=== PATIENT | female | born 1955 | race Caucasian/White ===

== ENCOUNTER 2016-11-15 08:25 | Day surgery (SDC) | payer OTHER ==
[2016-11-10 16:10] VITALS: BMI 32.5
[~2016-11-15 08:25] MED LIST: ACETAMINOPHEN 325 MG TABLET (FP) PO PRN; LIDOCAINE HCL 0.5% EPINEPHRINE 1:200,000 50 ML VIAL IJ ONE; TETRACAINE 0.5% OPHTH SOLN 2 ML BOTTLE TP ONE; TRIAMCINOLONE ACET 40MG/1ML VIAL IM ONE
[2016-11-15] MEDS ORDERED: CIPROFLOXACIN 0.3% EYE DROPS 5 ML BOTTLE ONE (08:38)
[2016-11-15] MEDS: CIPROFLOXACIN HCL 0.3% OPHTH 2.5ML BOTTLE OP SCH ×2 (09:00→09:10)
[2016-11-15] MEDS ORDERED: TRIAMCINOLONE ACET 40MG/1ML VIAL ONE (09:24)
[2016-11-15] MEDS ORDERED: LIDOCAINE HCL 2% JELLY (5 ML/TUBE) ONE (09:26)
[2016-11-15] MEDS ORDERED: LIDOCAINE HCL 2% JELLY (5 ML/TUBE) TP ONE (09:30)
[2016-11-15] MEDS ORDERED: LIDOCAINE HCL 0.5% EPINEPHRINE 1:200,000 50 ML VIAL IJ ONE ×2 (09:31→09:57)
[2016-11-15] MEDS ORDERED: MIDAZOLAM HCL 2 MG/2 ML SINGLE DOSE VIAL ONE (09:41)
[2016-11-15] MEDS ORDERED: TRIAMCINOLONE ACET 40MG/1ML VIAL IM ONE (10:17)
--- NOTE | 2016-11-15 11:26 | OP ---
DATE OF OPERATION: DATE OF DICTATION: 11/15/2016 PREOPERATIVE DIAGNOSIS: Pterygium, left eye. POSTOPERATIVE DIAGNOSIS: Pterygium, left eye. PROCEDURE: Excision of left pterygium with conjunctival autograft, left eye. ANESTHESIA: Topical/MAC. COMPLICATIONS: None. PROCEDURE: The patient was brought to the operating room and correctly identified along with the operative site. She was then prepped and draped in the usual sterile fashion, including 5% Betadine solution in the conjunctival sac and an eyelid drape. An eyelid speculum was then placed into the left eye. Attention was then placed to the pterygium and the borders were marked with a marking pen. Two relaxing incisions were made superiorly and inferiorly in the conjunctiva above and below the pterygium and dissection was performed to bare sclera beneath it with arlette scissors. The apex of the pterygium was then removed from the corneal surface with blunt dissection using Colibri forceps as well as Weck spear sponges. The remaining corneal defect was then polished using a 57-blade as well as a sae bur. The base of the pterygium was then excised using Arlette scissors. Care was made not to damage the medial rectus tendon by elevating the pterygium during excision. The conjunctival defect was measured and measured 5 mm vertically by 4 mm horizontally. Attention was then placed to the supratemporal conjunctiva, the appropriate area was marked with a marking pen, and the conjunctiva elevated by injecting lidocaine 1 % with epinephrine beneath it. The conjunctival autograft was then created, freed and then brought over to the nasal-conjunctival defect and sutured into place, keeping its orientation with four 10-0 nylon sutures. At the end of the procedure, the graft was noted to be well secured. No significant bleeding was noted. A subconjunctival Kenalog injection was given at the nasal site of the pterygium excision. Topical Vancomycin given, the eye patched, and the patient discharged from the operating room in a stable condition. PRAVIN HOLCOMB M.D. JO [id number] MTDD
[2016-11-15] MEDS ORDERED: ACETAMINOPHEN 325 MG TABLET (FP) ONE (11:57)
[2016-11-15 13:46] VITALS: PULSE 68
[2016-11-15 13:58] VITALS: BP 126/68; TEMP 97.6
--- NOTE | 2016-11-16 13:31 | PATH ---
Surgical Pathology Report Patient Name: LATHA HADLEY [facility]. Rec. #: [id number] /Age/Gender: 1955 (Age: 60) / F Account: [id number] Location: [facility] SURGICAL Taken: 11/15/2016 Received: 11/15/2016 Reported: 11/16/2016 Physicians: Alek Macdonald M.D. Specimen(s) Received PTERYGIUM LEFT EYE Clinical History Pterygium left eye Final Diagnosis CONJUNCTIVA, LEFT EYE, PTERIGIUM, EXCISION: CONJUNCTIVA WITH ELASTIC DEGENERATION, FIBROSIS AND NEOVASCULARIZATION WITH HEMORRHAGE CONSISTENT WITH PTERIGIUM. Electronically Signed Abilio Ren M.D. Gross Description Received in formalin, labeled "pterygium left eye" is a brown, irregular portion of soft tissue measuring 0.1 cm in greatest dimension. The specimen is submitted in toto in one cassette. /11/15/201611/15/2016
== END 2016-11-15 12:00 | disposition home or self-care (01) ==
LOC: JASU-SURG 08:25
PROVIDERS: ATTEND Ophthalmology
PROC: 08U107Z Supplement of Left Eye with Autologous Tissue Substitute, Open Approach (ICD-10-PCS; principal; 2016-11-15 10:00)
DX: H11.002 Unspecified pterygium of left eye (principal)
CPT/HCPCS: 88304-TC

== ENCOUNTER 2016-12-06 09:16 | Day surgery (SDC) | payer OTHER ==
[~2016-12-06 09:16] MED LIST changes: -ACETAMINOPHEN 325 MG TABLET (FP) PO PRN; -LIDOCAINE HCL 0.5% EPINEPHRINE 1:200,000 50 ML VIAL IJ ONE; -TETRACAINE 0.5% OPHTH SOLN 2 ML BOTTLE TP ONE; +TRIAMCINOLONE ACET 40MG/1ML VIAL IJ ONE; -TRIAMCINOLONE ACET 40MG/1ML VIAL IM ONE
[2016-12-06 09:31] VITALS: BMI 32.5
[2016-12-06] MEDS ORDERED: LIDOCAINE HCL 2% JELLY (5 ML/TUBE) ONE (09:37)
[2016-12-06] MEDS: CIPROFLOXACIN 0.3% EYE DROPS 5 ML BOTTLE ONE ×3 (10:00→10:10)
[2016-12-06] MEDS ORDERED: LIDOCAINE HCL 2% JELLY (5 ML/TUBE) TP ONE (10:55)
[2016-12-06] MEDS ORDERED: MIDAZOLAM HCL 2 MG/2 ML SINGLE DOSE VIAL ONE (10:55)
[2016-12-06] MEDS ORDERED: POVIDONE-IODINE 5% OPHTHALMIC PREP 30 ML SOLUTION OD ONE (11:08)
[2016-12-06] MEDS ORDERED: BSS (NA/CA/MG/K) BALANCED SALT SOLUTION OPHTH SOLN 15 ML BOTTLE OD ONE (11:14)
[2016-12-06] MEDS ORDERED: LIDOCAINE 1%/EPI 1:100000 (50 ML MULTI DOSE VIAL) INF ONE ×2 (11:14)
[2016-12-06] MEDS ORDERED: TRIAMCINOLONE ACET 40MG/1ML VIAL IJ ONE (11:36)
[2016-12-06] MEDS ORDERED: ACETAMINOPHEN 325 MG TABLET (FP) ONE (12:01)
[2016-12-06 12:31] VITALS: TEMP 98.1
--- NOTE | 2016-12-06 12:33 | OP ---
DATE OF OPERATION: 12/06/2016 SURGEON: Pravin Holcomb M.D. PREOPERATIVE DIAGNOSIS: Pterygium, right eye. POSTOPERATIVE DIAGNOSIS: Pterygium, right eye. PROCEDURE: Excision of pterygium with conjunctival autograft. ANESTHESIA: Topical MAC. COMPLICATONS: None. DESCRIPTION OF PROCEDURE: The patient was brought into the operating room and correctly identified along with the operative site. She was then prepped and draped in the usual sterile fashion including 5% Betadine solution in the conjunctival sac and an eyelid drape. An eyelid speculum was then placed into the right eye. The pterygium was inspected, and it was not a broad pterygium. However, it was noted to extend into the cornea approximately mid pupil, mid iris, just in between the limbus. The pterygium was noted to extend just between the limbus and the pupil. The borders of the pterygium were marked with a marking pen, and two relaxing incisions were made with Miguel Angel scissors superiorly and inferiorly of the pterygium. The pterygium was then dissected to bare sclera using Miguel Angel scissors and freed from the corneal surface. The corneal surface was polished using a 57 blade until there was no opacity noted. The pterygium was then excised at its base with care not to damage the needle and respective tendon by elevating the pterygium during excision. The conjunctival defect was measured and measured 4 mm x 5 mm vertically and horizontally respectively. Attention was then placed to the superotemporal conjunctiva, and lidocaine 1% with epinephrine was injected beneath the subconjunctival space and appropriately conjunctival autograft was created. The autograft was kept in its orientation and secured into place in the nasal conjunctival defect using four 10-0 nylon sutures. The graft was noted to be well secured and in a position approximately 1 mm from the limbus. Subconjunctival Kenalog was given, the eye patched, and the patient discharged from the operating room in a stable condition. PRAVIN HOLCOMB M.D. [id number]
[2016-12-06] MEDS ORDERED: ACETAMINOPHEN 325 MG TABLET (FP) PO ONE (12:35)
[2016-12-06 12:37] VITALS: BP 147/60; PULSE 63
--- NOTE | 2016-12-07 16:34 | PATH ---
Surgical Pathology Report Patient Name: LATHA HADLEY [facility]. Rec. #: [id number] /Age/Gender: 1955 (Age: 61) / F Account: [id number] Location: [facility] SURGICAL Taken: 12/06/2016 Received: 12/06/2016 Reported: 12/07/2016 Physicians: Alek Macdonald M.D. Specimen(s) Received PTERYGIUM RIGHT EYE Clinical History Pterygium right eye Final Diagnosis PTERYGIUM, RIGHT EYE, EXCISION: PTERYGIUM. Electronically Signed Doris Cummings M.D. Gross Description Received in formalin, labeled "pterygium right eye" is a little, irregular portion of soft tissue measuring 0.2 cm. in greatest dimension. The specimen is submitted in toto in one cassette. [facility]/12/06/2016 [facility]/12/06/2016
== END 2016-12-06 12:50 | disposition home or self-care (01) ==
LOC: JASU-SURG 09:16
PROVIDERS: ATTEND Ophthalmology
PROC: 08U007Z Supplement of Right Eye with Autologous Tissue Substitute, Open Approach (ICD-10-PCS; principal; 2016-12-06 11:00)
DX: H11.001 Unspecified pterygium of right eye (principal)
CPT/HCPCS: 88304-TC

== ENCOUNTER 2017-03-07 06:22 | Emergency (ER) | payer OTHER ==
[2017-03-07 06:37] VITALS: BP 117/59; PULSE 83; TEMP 97.9; BMI 35.0
[2017-03-07] MEDS ORDERED: ONDANSETRON 4 MG/2 ML VIAL IVPUSH ONE (08:22)
[2017-03-07] MEDS ORDERED: SODIUM CHLORIDE 1,000 ML IV STA (08:22)
[2017-03-07] MEDS ORDERED: KETOROLAC TROMETHAMINE 30 MG/1 ML VIAL IVPUSH ONE (08:22)
--- NOTE | 2017-03-07 08:37 | PDOC ---
History of Present Illness - General Chief Complaint: Vomiting/Diarrhea Stated Complaint: VOMITING Time Seen by Provider: 03/07/17 07:30 History Source: Patient - History of Present Illness Timing/Duration: reports: constant Quality: reports: other Abdominal Pain Onset Location: reports: other (upper abd) Past History - Past Medical History Allergies/Adverse Reactions: Allergies Allergy/AdvReac Type Severity Reaction Status Date / Time No Known Allergies Allergy Unverified 03/07/17 06:30 Home Medications: Ambulatory Orders Amlodipine Besylate/Benazepril [Lotrel 5-40 mg Capsule] 1 each PO DAILY Atorvastatin Ca [Lipitor] 10 mg PO HS 11/15/16 Ferrous Sulfate 325 mg PO BID 11/15/16 Insulin Degludec [Tresiba Flextouch U-100] 15 unit SQ HS 11/15/16 Lisinopril [Prinivil -] 40 mg PO DAILY 11/15/16 Ranitidine [Zantac -] 150 mg PO BID 11/15/16 Anemia: Yes Asthma: No Cancer: No Cardiac Disorders: No CVA: No COPD: No CHF: No Dementia: No Diabetes: Yes (NIDDM SINCE ) GI Disorders: Yes (H/O GASTRITIS) Disorders: No HTN: Yes Hypercholesterolemia: No Liver Disease: No Seizures: No Thyroid Disease: No - Surgical History Abdominal Surgery: No Appendectomy: No Cardiac Surgery: No Cholecystectomy: Yes (OPEN 2008) Lung Surgery: No Neurologic Surgery: No Orthopedic Surgery: No - Suicide/Smoking/Psychosocial Hx Smoking History: Never smoked Have you smoked in the past 12 months: No Information on smoking cessation initiated: No Hx Alcohol Use: No Drug/Substance Use Hx: No Substance Use Type: None Hx Substance Use Treatment: No Review of Systems - Review of Systems Constitutional: No: Chills, Fever ABD/GI: Yes: Diarrhea, Nausea, Vomiting, Abdominal cramping : No: Dysuria *Physical Exam - Vital Signs Last Vital Signs Temp Pulse Resp BP Pulse Ox 97.9 F 83 18 117/59 100 03/07/17 06:31 03/07/17 06:31 03/07/17 06:31 03/07/17 06:31 03/07/17 06:31 - Physical Exam General Appearance: Yes: Appropriately Dressed. No: Apparent Distress HEENT: positive: Normal Voice Neck: positive: Supple Respiratory/Chest: negative: Respiratory Distress Gastrointestinal/Abdominal: positive: Tender (mid ttp to mid upper abd), Soft Musculoskeletal: negative: CVA Tenderness Integumentary: positive: Dry, Warm Neurologic: positive: Fully Oriented, Alert, Normal Mood/Affect Medical Decision Making - Medical Decision Making 03/07/17 08:23 61-year-old female 51-year-old female, history of hypertension, insulin- dependent diabetic, status post cholecystectomy remotely, here with mid upper abdominal pain with nausea, vomiting and diarrhea since yesterday. Patient states she's had approximately 5 episodes of non-bloody watery diarrhea and vomited once. Currently feels very nauseous. As per patient. No fever or chills. No recent sick contacts, travel or antibiotic use. See exam Possible gastroenteritis vs gastritis, r/o DKA, less likely SBO or cardiac Stable in ED and in NAD w/ menial ttp to mid upper abd -pain control -zofran -IVF -labs -reassess 03/07/17 09:27 As per ED nurse prior to placement of IV for labs and meds. Patient and walked out of ED for unclear reasons *DC/Admit/Observation/Transfer Diagnosis at time of Disposition: Patient left before treatment completed - Discharge Dispostion Disposition: ELOPED Condition at time of disposition: Stable - Referrals Referrals: Danitza Kaur MD [Primary Care Provider] - - Patient Instructions - Post Discharge Activity
== END 2017-03-07 09:15 | disposition left against medical advice (07) ==
LOC: JER 06:22
DX: F10.10 Alcohol abuse, uncomplicated (principal); Z91.19 Patient's noncompliance with other medical treatment and regimen
CPT/HCPCS: 99281-25

== ENCOUNTER 2018-11-08 17:34 | Emergency (ER) | payer OTHER ==
--- NOTE | 2018-11-08 17:46 | PDOC ---
Rapid Medical Evaluation Time Seen by Provider: 11/08/18 17:45 Medical Evaluation: Allergies Allergy/AdvReac Type Severity Reaction Status Date / Time No Known Allergies Allergy Unverified 03/07/17 06:30 11/08/18 17:45 I have performed a brief in-person evaluation of this patient. The patient presents with a chief complaint of:Fatigue x 2 days. H/o DM, HTN, s/ p joshua, anemia, s/p transfusion x 1 per pt. States her PMD called her 1 month ago and told her she needed a blood transfusion but never f/u with pt Pertinent physical exam findings:stable I have ordered the following:labs The patient will proceed to the ED for further evaluation. Discharge Disposition - Diagnosis Fatigue Qualifiers: Fatigue type: unspecified Qualified Code(s): R53.83 - Other fatigue - Referrals - Patient Instructions - Post Discharge Activity
[2018-11-08 17:50] VITALS: BMI 37.5
[2018-11-08 18:15] LABS: BASO % 0.7 % (0-2.0); EOS % 2.7 % (0-4.5); HEMATOCRIT 35.7 % (32.4-45.2); HEMOGLOBIN 12.1 GM/dL (10.7-15.3); LYMPH % 24.2 % (8-40); MCH 29.7 pg (25.7-33.7); MCHC 33.7 g/dl (32.0-36.0); MEAN CELL VOLUME 88.1 fl (80-96); MEAN PLT VOLUME 10.1 fl (7.5-11.1); MONO % 7.2 % (3.8-10.2); NEUT % 65.2 % (42.8-82.8); PLATELET COUNT 191 K/MM3 (134-434); RBC 4.06 M/mm3 (3.60-5.2); RDW 14.3 % (11.6-15.6); WHITE BLOOD COUNT 7.1 K/mm3 (4.0-10.0)
[2018-11-08 18:27] LABS: INR 1.02 (0.83-1.09)
[2018-11-08 19:03] LABS: ALBUMIN 3.9 g/dl (3.4-5.0); BILIRUBIN,TOTAL 0.5 mg/dL (0.2-1); BLOOD UREA NITROGEN 16.7 mg/dL (7-18); CALCIUM 9.3 mg/dL (8.5-10.1); POTASSIUM 4.5 mmol/L (3.5-5.1)
--- NOTE | 2018-11-08 19:32 | PDOC ---
Documentation entered by Cher Guerrier SCRIBE, acting as scribe for Nerissa Beck MD. Nerissa Beck MD: This documentation has been prepared by the Chey de oliveira Xhesika, SCRIBE, under my direction and personally reviewed by me in its entirety. I confirm that the documentation accurately reflects all work, treatment, procedures, and medical decision making performed by me. Attending Attestation - Resident Resident Name: AnayeliBrianflorentinovannessa Chavez - ED Attending Attestation I have performed the following: I have examined & evaluated the patient, The case was reviewed & discussed with the resident, I agree w/resident's findings & plan - HPI HPI: 11/08/18 19:20 The patient is a 62 year old female with a significant past medical history of HTN, IDDM, s/p cholecystectomy who presents to the ED with 1 week of generalized weakness and dizziness worsening today. Patient states she received a call from her PCP (does not know name) 2 weeks ago and was told she needed a blood transfusion, however, she never f/u. Patient states she endorses SOB, chest pain, L sided arm pain and headache, secondary to her symptoms. Patient states she took her BP today and her systolic was 95, which prompted her arrival to the ED. Denies fever, chills, palpitations, N, V, D, abdominal pain, bladder and bowel problems, leg swelling, No sick contacts or travel. No new changes in medications. Allergies: None Social history: Lives with family. No tobacco, ETOH or drug use. Surgical history: stomach surgery Meds: as documented in EMR - Physicial Exam PE: 11/08/18 19:20 Agree with the resident's HPI and PE as documented in the electronic medical record. NAD, well appearing, EOMI, PERRL, MMM, nl conjunctiva, anicteric; neck supple. lungs clear, RRR, abdomen soft nontender. Back nontender. LINDA x4, no focal neuro deficits. No peripheral edema. normal color for ethnicity, WWP. - Medical Decision Making 11/08/18 19:09 Fatigue x 2 days. H/o DM, HTN, s/p joshua, anemia, s/p transfusion x 1 per pt. States her PMD called her 1 month ago and told her she needed a blood transfusion for anemia previously. Vital Signs Temp Pulse Resp BP Pulse Ox 97.8 F 61 18 159/65 98 11/08/18 22:25 11/08/18 22:25 11/08/18 22:25 11/08/18 22:25 11/08/18 22:25 labs and lytes unremarkable. no anemia EKG unremarkable as documente,d no ischemic findings trop neg, reassuring VS reviewed, wnl. normotensive well appearing, neuro intact, ambulatory, prashant PO intake doubt cardiac or pulmonary or neurologic etiology no indication for transfusion. nonspecific sx to be f/u primary doctor. return precautions. pt made aware of impression and plan in [place] language, prompt followup and supportive care. Pt to be discharged in stable condition. Patient and family made aware of clinical impression, treatment recommendations and disposition plan, return precautions discussed (including but not limited to new or persistent/worsening symptoms, pain, fevers, or signs of infection, chest pain, respiratory distress , inability to tolerate oral intake, dehydration, syncope, or neurologic changes ). Follow up with PMD and/or specialist as recommended, follow up information provided, take medications as instructed for duration of time. continue with supportive care, avoid triggers and precipitants. All questions answered to patient's satisfaction and expressed understanding and comfort with this. At the time of discharge, the patient is alert, clinically improved, tolerating po and verbalizes understanding of instructions, satisfied with the care received and felt comfortable with the plan. Patient does not suffer from an acute life- threatening medical condition at this time and is safe for outpatient follow- up. 11/09/18 22:15 11/09/18 22:19 Heart Score/ECG Review - History History: Slightly suspicious - Electrocardiogram EKG: Normal - Age Age: 45-65 - Risk Factors Risk Factors Heart Score: Yes Hx Hypertension, Yes Hx Diabetes Based on the list above the patient has:: 1-2 risk factors - Troponin Troponin: </= normal limit - Score Heart Score - Total: 2 #1 ECG reviewed & interpreted by me at: 19:45 General ECG Interpretation: Sinus Rhythm, Normal Rate, Normal Intervals, No acute ischemic changes 11/08/18 19:[address] elevations or depression, no contiguous lead changes or derangements.
--- NOTE | 2018-11-08 19:37 | PDOC ---
History of Present Illness <Nerissa Beck - Last Filed: 11/08/18 22:04> - History of Present Illness Initial Comments: 62 y/o [place] speaking female with past medical history of DM and HTN here for dizziness and weakness today. She states that today she checked her blood pressure and her systolic was in the 90s. She states she was told by a doctor 2 weeks ago that she needed a blood transfusion but she did not follow up at that time because she was not given a referral. She states she has not been feeling well for the last week. She also complains of chest pain, mild SOB, a headache, and left arm pain. She denies any fever, chills, cough, or other symptoms. She states she does not have a PCP. She states she had a blood transfusion one year ago but does not remember why she had it. 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 <Juan Guadalupe S - Last Filed: 11/08/18 22:12> - General Chief Complaint: Weakness Stated Complaint: BLOOD TRANSFUSION Time Seen by Provider: 11/08/18 17:45 Past History <Nerissa Beck - Last Filed: 11/08/18 22:04> - Past Medical History Anemia: Yes Asthma: No Cancer: No Cardiac Disorders: No CVA: No COPD: No CHF: No Dementia: No Diabetes: Yes (NIDDM SINCE ) GI Disorders: Yes (H/O GASTRITIS) Disorders: No HTN: Yes Hypercholesterolemia: No Liver Disease: No Seizures: No Thyroid Disease: No - Surgical History Abdominal Surgery: No Appendectomy: No Cardiac Surgery: No Cholecystectomy: Yes (OPEN 2008) Lung Surgery: No Neurologic Surgery: No Orthopedic Surgery: No - Immunization History Immunization Up to Date: Yes - Suicide/Smoking/Psychosocial Hx Smoking History: Never smoked Have you smoked in the past 12 months: No Information on smoking cessation initiated: No Hx Alcohol Use: No Drug/Substance Use Hx: No Substance Use Type: None Hx Substance Use Treatment: No <Juan Guadalupe - Last Filed: 11/08/18 22:12> - Past Medical History Allergies/Adverse Reactions: Allergies Allergy/AdvReac Type Severity Reaction Status Date / Time No Known Allergies Allergy Verified 11/08/18 17:47 Home Medications: Ambulatory Orders Amlodipine Besylate/Benazepril [Lotrel 5-40 mg Capsule] 1 each PO DAILY Atorvastatin Ca [Lipitor] 10 mg PO HS 11/15/16 Ferrous Sulfate 325 mg PO BID 11/15/16 Insulin Degludec [Tresiba Flextouch U-100] 15 unit SQ HS 11/15/16 Lisinopril [Prinivil -] 40 mg PO DAILY 11/15/16 Ranitidine [Zantac -] 150 mg PO BID 11/15/16 Review of Systems - Review of Systems Able to Perform ROS?: Yes Is the patient limited Croatian proficient: Yes Constitutional: Yes: Weakness. No: Chills, Fever Respiratory: Yes: Shortness of Breath. No: Cough Cardiac (ROS): Yes: Chest Pain. No: Palpitations ABD/GI: Yes: Abdominal cramping Musculoskeletal: No: Back Pain Neurological: Yes: Headache, Weakness. No: Numbness, Tingling Hematologic/Lymphatic: Yes: Anemia <Juan Guadalupe S - Last Filed: 11/08/18 22:12> *Physical Exam - Vital Signs Last Vital Signs Temp Pulse Resp BP Pulse Ox 98.1 F 67 18 141/59 L 100 11/08/18 19:20 11/08/18 19:20 11/08/18 19:20 11/08/18 19:20 11/08/18 19:20 <Nerissa Beck - Last Filed: 11/08/18 22:04> - Vital Signs Last Vital Signs Temp Pulse Resp BP Pulse Ox 98.2 F 71 17 121/46 L 98 11/08/18 17:47 11/08/18 17:47 11/08/18 17:47 11/08/18 17:47 11/08/18 18:31 - Physical Exam General Appearance: Yes: Nourished HEENT: positive: EOMI. negative: Pale Conjunctivae Neck: positive: Supple. negative: Lymphadenopathy (R), Lymphadenopathy (L) Respiratory/Chest: positive: Normal Breath Sounds. negative: Chest Tender, Accessory Muscle Use, Rales, Rhonchi, Stridor Cardiovascular: positive: Regular Rhythm, Regular Rate, S1, S2 Gastrointestinal/Abdominal: positive: Normal Bowel Sounds, Tenderness (mild diffuse tenderness to palpation) Lymphatic: negative: Adenopathy Extremity: positive: Normal Capillary Refill Integumentary: negative: Dry Neurologic: positive: Alert, Motor Strength 5/5 <Juan Guadalupe - Last Filed: 11/08/18 22:12> Heart Score/ECG Review #1 General ECG Interpretation: Sinus Rhythm vent rate: 58 bpm AK interval: 136ms QRS duration: 76ms QT/QTc 452/443ms P-R-T axes: 52 4 49 sinus bradycardia no acute ischemic changes 11/08/18 20:30 <Juan Guadalupe S - Last Filed: 11/08/18 22:12> ED Treatment Course - LABORATORY CBC & Chemistry Diagram: 11/08/18 18:04 11/08/18 18:04 - ADDITIONAL ORDERS Additional order review: Laboratory Results 11/08/18 11/08/18 11/08/18 20:40 18:04 18:04 PT with INR 12.00 INR 1.02 Sodium Potassium Chloride Carbon Dioxide Anion Gap BUN Creatinine Est GFR (CKD-EPI)AfAm Est GFR (CKD-EPI)NonAf Random Glucose Calcium Total Bilirubin AST ALT Alkaline Phosphatase Creatine Kinase 233 H Creatine Kinase Index 0.9 CK-MB (CK-2) 2.3 Troponin I < 0.02 Total Protein Albumin Blood Type A POSITIVE Antibody Screen Negative 11/08/18 18:04 PT with INR INR Sodium 141 Potassium 4.5 Chloride 110 H Carbon Dioxide 23 Anion Gap 8 BUN 16.7 Creatinine 1.0 Est GFR (CKD-EPI)AfAm 69.92 Est GFR (CKD-EPI)NonAf 60.33 Random Glucose 140 H Calcium 9.3 Total Bilirubin 0.5 AST 26 ALT 40 Alkaline Phosphatase 180 H Creatine Kinase Creatine Kinase Index CK-MB (CK-2) Troponin I Total Protein 7.0 Albumin 3.9 Blood Type Antibody Screen 11/08/18 18:04 RBC 4.06 MCV 88.1 MCHC 33.7 RDW 14.3 MPV 10.1 Neutrophils % 65.2 Lymphocytes % 24.2 Monocytes % 7.2 Eosinophils % 2.7 Basophils % 0.7 <Nerissa Beck - Last Filed: 11/08/18 22:04> - LABORATORY CBC & Chemistry Diagram: 11/08/18 18:04 11/08/18 18:04 - ADDITIONAL ORDERS Additional order review: Laboratory Results 11/08/18 11/08/18 18:04 18:04 PT with INR 12.00 INR 1.02 Sodium 141 Potassium 4.5 Chloride 110 H Carbon Dioxide 23 Anion Gap 8 BUN 16.7 Creatinine 1.0 Est GFR (CKD-EPI)AfAm 69.92 Est GFR (CKD-EPI)NonAf 60.33 Random Glucose 140 H Calcium 9.3 Total Bilirubin 0.5 AST 26 ALT 40 Alkaline Phosphatase 180 H Total Protein 7.0 Albumin 3.9 11/08/18 18:04 RBC 4.06 MCV 88.1 MCHC 33.7 RDW 14.3 MPV 10.1 Neutrophils % 65.2 Lymphocytes % 24.2 Monocytes % 7.2 Eosinophils % 2.7 Basophils % 0.7 - RADIOLOGY Radiology Studies Ordered: Category Date Time Status CHEST PA & LAT [RAD] Stat Radiology 11/08/18 19:19 Ordered <Juan Guadalupe - Last Filed: 11/08/18 22:12> Medical Decision Making - Medical Decision Making 62 y/o [place] speaking female with past medical history of DM and HTN here for dizziness and weakness today. CBC shows that patient is not anemic. Trops, EKG, and chest xray ordered. 11/08/18 19:45 11/08/18 21:25 Patient is feeling better. Would like to go home. Trops negative. No acute pathology noted on chest x-ray, waiting for final read by radiology. 11/08/18 21:46 Patient feeling better. Trops and CK-MB negative. Normal EKG. Patient not anemic. Will discharge patient home with recommendations to follow up with PMD. <Juan Guadalupe - Last Filed: 11/08/18 22:12> *DC/Admit/Observation/Transfer - Discharge Dispostion Decision to Admit order: No <Nerissa Beck - Last Filed: 11/08/18 22:04> - Discharge Dispostion Decision to Admit order: No <Juan Guadalupe - Last Filed: 11/08/18 22:12> Diagnosis at time of Disposition: Fatigue Qualifiers: Fatigue type: unspecified Qualified Code(s): R53.83 - Other fatigue - Discharge Dispostion Disposition: HOME Condition at time of disposition: Good - Referrals Referrals: Danitza Kaur MD [Primary Care Provider] - - Patient Instructions Printed Discharge Instructions: DI for Fatigue, DI for Shortness of Breath, DI for Chest Pain, DI for Dizziness-Nonvertigo Additional Instructions: Si tiene palpitaciones, sudoracin, empeoramiento del dolor en el pecho, confusin, empeoramiento de los mareos, aturdimiento o falta de aliento, regrese a la edson de emergencias. Anju un seguimiento con patiño mdico de atencin primaria dentro de 1 semana. Print Language: PERUVIAN - Post Discharge Activity
[2018-11-08 22:26] VITALS: BP 159/65; PULSE 61; TEMP 97.8
--- NOTE | 2018-11-09 11:30 | EKG ---
Test Reason : Blood Pressure : / mmHG Vent. Rate : 058 BPM Atrial Rate : 058 BPM P-R Int : 136 ms QRS Dur : 076 ms QT Int : 452 ms P-R-T Axes : 052 004 049 degrees QTc Int : 443 ms SINUS BRADYCARDIA OTHERWISE NORMAL ECG NO PREVIOUS ECGS AVAILABLE Confirmed by MATILDA RODRÍGUEZ, ZONIA ([id number]) on 11/09/2018 11:30:33 AM Referred By: Confirmed By:ZONIA GREY MD
== END 2018-11-08 22:26 | disposition home or self-care (01) ==
LOC: JER 17:34
DX: R53.83 Other fatigue (principal); D64.9 Anemia, unspecified; I10 Essential (primary) hypertension; E11.9 Type 2 diabetes mellitus without complications; Z79.84 Long term (current) use of oral hypoglycemic drugs
CPT/HCPCS: 36415; 71046-TC-FY; 80053; 82550; 82553; 84484; 85025; 85610; 86850; 86900; 86901; 93005; 93010; 99285-25

== ENCOUNTER 2022-03-15 11:22 | Emergency (ER) | payer OTHER ==
[2022-03-15 11:46] VITALS: BP 147/72; PULSE 58; RESP 18; TEMP 97.8; BMI 29.5
[2022-03-15 14:40] LABS: BASO % 0.8 % (0-2.0); EOS % 1.7 % (0-4.5); HEMATOCRIT 38.8 % (32.4-45.2); HEMOGLOBIN 12.8 GM/dL (10.7-15.3); LYMPH % 24.5 % (8-40); MCH 29.5 pg (25.7-33.7); MCHC 33.1 g/dl (32.0-36.0); MEAN CELL VOLUME 89.2 fl (80-96); MEAN PLT VOLUME 10.3 fl (7.5-11.1); MONO % 6.6 % (3.8-10.2); NEUT % 66.4 % (42.8-82.8); PLATELET COUNT 173 10^3/uL (134-434); RBC 4.35 M/mm3 (3.60-5.2); RDW 14.2 % (11.6-15.6); WHITE BLOOD COUNT 7.6 K/mm3 (4.0-10.0)
[2022-03-15 14:53] LABS: INR 1.03 (0.83-1.09); PROTHROMBIN TIME (PATIENT) 11.9 SEC (9.7-13.0)
[2022-03-15 15:08] LABS: BLOOD UREA NITROGEN 10.8 mg/dL (7-18)
[2022-03-15 15:09] LABS: ALBUMIN 3.6 g/dl (3.4-5.0)
[2022-03-15 15:13] LABS: BILIRUBIN,TOTAL 0.7 mg/dL (0.2-1); CREATININE 0.9 mg/dL (0.55-1.3); TOT PROT 6.7 g/dl (6.4-8.2)
== END 2022-03-15 15:57 | disposition home or self-care (01) ==
LOC: JER 11:22
DX: R79.89 Other specified abnormal findings of blood chemistry (principal)
CPT/HCPCS: 36415; 80053; 85025; 85610; 86850; 86900; 86901; 99283-25

== ENCOUNTER 2024-05-23 14:45 | Emergency (ER) | payer OTHER ==
[2024-05-23 15:19] VITALS: BP 167/52; PULSE 63; RESP 17; TEMP 98; BMI 57.1
[2024-05-23] MEDS: SODIUM CHLORIDE 0.9% 500 ML INFUS.BAG IV ONE (16:27)
[2024-05-23 16:34] LABS: VENOUS BASE EXCESS -1.3 mmol/L (-2-2); VENOUS O2 SATURATION 64.8 % (70-80); VENOUS PCO2 43.5 mmHg (38-52); VENOUS PH 7.363 (7.310-7.410)
[2024-05-23 16:38] LABS: BASO % 0.6 % (0-2.0); EOS % 1.1 % (0-4.5); HEMATOCRIT 39.7 % (32.4-45.2); HEMOGLOBIN 13.7 GM/dL (10.7-15.3); LYMPH % 21.5 % (8-40); MCH 30.2 pg (25.7-33.7); MCHC 34.5 g/dl (32.0-36.0); MEAN CELL VOLUME 87.7 fl (80-96); MEAN PLT VOLUME 9.8 fl (7.5-11.1); MONO % 5.5 % (3.8-10.2); NEUT % 71.3 % (42.8-82.8); PLATELET COUNT 219 10^3/uL (134-434); RBC 4.52 M/mm3 (3.60-5.2); RDW 13.7 % (11.6-15.6); WHITE BLOOD COUNT 8.6 K/mm3 (4.0-10.0)
[2024-05-23 16:46] LABS: INR 0.97 (0.83-1.09); PROTHROMBIN TIME (PATIENT) 10.7 SEC (9.7-13.0)
[2024-05-23 16:49] LABS: ACTIVATED PTT 28.2 SECONDS (25.2-36.5)
[2024-05-23 17:00] LABS: POTASSIUM 4.1 mmol/L (3.5-5.1)
[2024-05-23 17:02] LABS: CALCIUM 9.4 mg/dL (8.5-10.1)
[2024-05-23 17:04] LABS: ALBUMIN 3.2 g/dl (3.4-5.0); BLOOD UREA NITROGEN 18.4 mg/dL (7-18)
[2024-05-23 17:06] LABS: CREATININE 1.1 mg/dL (0.55-1.3)
[2024-05-23 17:07] LABS: BILIRUBIN,TOTAL 0.6 mg/dL (0.2-1); TOT PROT 6.6 g/dl (6.4-8.2)
[2024-05-23 17:57] LABS: HIV INTERPRETATION NEGATIVE (NEGATIVE)
== END 2024-05-23 17:37 | disposition home or self-care (01) ==
LOC: JER 14:45
DX: E11.65 Type 2 diabetes mellitus with hyperglycemia (principal); E87.1 Hypo-osmolality and hyponatremia; R10.84 Generalized abdominal pain
CPT/HCPCS: 36415; 80053; 82010; 82803; 82962; 83605; 84484; 85025; 85610; 85730; 86803; 86850; 86900; 86901; 87389; 93005; 93010; 99284-25